=== PATIENT | male | born 1970 | race Caucasian/White ===

== ENCOUNTER 2023-08-19 15:31 | Emergency (ER) | payer SELFPAY ==
[~2023-08-19] VITALS: Ht 198.1 cm; Wt 78.0 kg
[2023-08-19 16:10] LABS: BASO # 0.05 K/mm3 (0.02-0.10); EOS # 0.04 K/mm3 (0.04-0.40); EOS % 0.4 % (0.0-4.0); HEMATOCRIT 41.3 % (42.0-52.0); HEMOGLOBIN 14.1 g/dL (13.5-18.0); LYMPH# 3.12 K/mm3 (1.50-4.00); MEAN CELL VOLUME 102 fl (78-100); MEAN CORPUSCULAR HEMOGLOBIN 35 pg (27-31); MEAN CORPUSCULAR HGB CONC 34 g/dL (33-37); MEAN PLATELET VOLUME 9.4 fl (7.4-10.4); MONO # 0.27 K/mm3 (0.20-0.80); NEU # 7.21 K/mm3 (1.40-6.50); PLATELET COUNT 194 K/mm3 (130-400); RED BLOOD COUNT 4.05 M/mm3 (4.20-5.60); RED CELL DISTRIBUTION WIDTH 17.8 % (11.5-14.5); WHITE BLOOD COUNT 10.7 K/mm3 (4.8-10.8)
[2023-08-19 16:16] LABS: CALCIUM 8.3 mg/dL (8.3-10.5)
[2023-08-19 16:17] LABS: TOTAL PROTEIN 6.3 g/dL (6.4-8.3)
[2023-08-19 16:19] LABS: TOTAL BILIRUBIN 0.9 mg/dL (0.2-1.2)
[2023-08-19 16:24] LABS: LIPASE 48 U/L (8-78)
[2023-08-19 16:39] LABS: PH-URINE 6.5 (5.0 - 8.0); URINE APPEARANCE CLEAR; URINE BILIRUBIN NEGATIVE (NEGATIVE); URINE BLOOD NEGATIVE (NEGATIVE); URINE COLOR YELLOW; URINE GLUCOSE NEGATIVE (NEGATIVE); URINE KETONE NEGATIVE (NEGATIVE); URINE LEUKOCYTE ESTERASE NEGATIVE (NEGATIVE); URINE NITRATE NEGATIVE (NEGATIVE); URINE PROTEIN(semi-quant) NEGATIVE (NEGATIVE)
[2023-08-19 16:40] LABS: URINE WBC 0-1 /hpf (0-3)
[2023-08-19 20:45] VITALS: BP 120/102
== END 2023-08-19 20:45 | disposition short-term general hospital (02) ==
LOC: ED 15:31
PROVIDERS: Family Medicine
DX: K70.31 Alcoholic cirrhosis of liver with ascites (principal); E87.6 Hypokalemia; E83.42 Hypomagnesemia; E46 Unspecified protein-calorie malnutrition; G62.9 Polyneuropathy, unspecified; K76.6 Portal hypertension; F17.200 Nicotine dependence, unspecified, uncomplicated; Z79.899 Other long term (current) drug therapy
CPT/HCPCS: J3411; J3475; J3480; J3490; J7030; Q9967